=== PATIENT | female | born 1930 ===

== ENCOUNTER 2017-10-06 13:59 | Inpatient (IN) | payer OTHER ==
[2017-10-06] MEDS ORDERED: Iohexol 240 (50 ml) PO ONE (15:00)
[2017-10-06] MEDS ORDERED: Sodium Chloride 0.9% 1,000 ML IV STA (15:07)
--- NOTE | 2017-10-06 15:34 | ED PDOC ---
HPI: Abdomen Time Seen by Provider: 10/06/17 14:27 Chief Complaint (Nursing): Abdominal Pain Chief Complaint (Provider): Abdominal pain History Per: Patient History/Exam Limitations: no limitations Onset/Duration Of Symptoms: Days (10), Persistent Current Symptoms Are (Timing): Still Present Location Of Pain/Discomfort: Diffuse Additional History Per: Patient Additional Complaint(s): 87yo female, with history of hypertension, comes to ER for evaluation of abdominal pain for the past 10 days. Patient reports the pain is "on and off" but persistently. She states the pain is diffuse and worse with eating/drinking ; she reports decreased appetite secondary to pain. She reports she was evaluated at [facility] and had a CT scan, which revealed acute diverticulitis ; patient was given prescriptions for Keflex and Flagyl which she has been taking as prescribed, with no relief of symptoms. Patient denies any associated fever, chills, vomiting, diarrhea, bloody stools, or dark stools. 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 Harkins Past Medical History Reviewed: Historical Data, Nursing Documentation, Vital Signs Vital Signs: Last Vital Signs Temp 97.4 F L 10/07/17 09:00 Pulse 64 10/07/17 09:18 Resp 18 10/07/17 09:00 BP 122/66 10/07/17 09:18 Pulse Ox 98 10/07/17 09:00 - Medical History PMH: Arthritis, Asthma, HTN, Hyperlipidemia - Surgical History Surgical History: Appendectomy, Cholecystectomy Other surgeries: bilateral knee surgery - Family History Family History: States: No Known Family Hx - Home Medications Home Medications: Ambulatory Orders Medication Instructions Recorded Carvedilol [Coreg] 12.5 mg PO BID 10/06/17 Cephalexin [Keflex] 500 mg PO TID 10/06/17 Pantoprazole [Protonix EC Tab] 40 mg PO DAILY 10/06/17 metroNIDAZOLE [Flagyl] 500 mg PO TID 10/06/17 - Allergies Allergies/Adverse Reactions: Allergies Allergy/AdvReac Type Severity Reaction Status Date / Time No Known Allergies Allergy Verified 10/06/17 14:04 Review of Systems ROS Statement: Except As Marked, All Systems Reviewed And Found Negative (as per HPI) Constitutional: Negative for: Fever, Chills Cardiovascular: Negative for: Chest Pain Respiratory: Negative for: Shortness of Breath Gastrointestinal: Positive for: Abdominal Pain. Negative for: Vomiting, Diarrhea, Melena, Hematochezia Physical Exam - Reviewed Nursing Documentation Reviewed: Yes Vital Signs Reviewed: Yes - Physical Exam Appears: Positive for: Non-toxic, No Acute Distress Head Exam: Positive for: ATRAUMATIC, NORMAL INSPECTION, NORMOCEPHALIC Skin: Positive for: Normal Color Eye Exam: Positive for: Normal appearance, EOMI Neck: Positive for: Normal, Supple Cardiovascular/Chest: Positive for: Regular Rate, Rhythm Respiratory: Positive for: Normal Breath Sounds Pulses-Radial (L): 2+ Pulses-Radial (R): 2+ Gastrointestinal/Abdominal: Positive for: Normal Exam, Soft. Negative for: Tenderness, Mass, Guarding, Rebound Back: Positive for: Normal Inspection Extremity: Positive for: Normal ROM. Negative for: Pedal Edema, Deformity Neurologic/Psych: Positive for: Alert, Oriented. Negative for: Motor/Sensory Deficits - Laboratory Results Result Diagrams: 10/07/17 06:25 10/07/17 06:25 - ECG O2 Sat by Pulse Oximetry: 99 (RA) Pulse Ox Interpretation: Normal Medical Decision Making Medical Decision Making: Impression: Abdominal pain Differential: Acute diverticulitis, failed outpatient treatment, SBO Plan: -- Labs -- CT Abdomen/Pelvis w/ PO & IV Contrast -- IV Fluids Time: 1700 Patient signed out to Dr. Garnett pending CT studies. Scribe Attestation: Documented by Gala Dow, acting as a scribe for Tristan Mejia MD. Provider Scribe Attestation: All medical record entries made by the Scribe were at my direction and personally dictated by me. I have reviewed the chart and agree that the record accurately reflects my personal performance of the history, physical exam, medical decision making, and the department course for this patient. I have also personally directed, reviewed, and agree with the discharge instructions and disposition. Disposition - Clinical Impression Clinical Impression: Abdominal pain - Patient ED Disposition Is Patient to be Admitted: Transfer of Care Counseled Patient/Family Regarding: Studies Performed - Disposition Disposition: Transfer of Care Disposition Time: 17:00 Condition: FAIR Patient Signed Over To: Naeem Garnett Y Handoff Comments: pending CT
[2017-10-06 15:59] LABS: BASO % 0.4 % (0.0-2.0); EOS # 0.1 K/uL (0.0-0.7); EOS % 1.1 % (0.0-4.0); HEMOGLOBIN 12.1 g/dL (12.0-16.0); LYMPH # 1.6 K/uL (1.0-4.3); MEAN CELL VOLUME 100.4 fl (81.0-99.0); MEAN CORPUSCULAR HEMOGLOBIN 33.8 pg (27.0-31.0); MEAN CORPUSCULAR HGB CONC 33.7 g/dL (33.0-37.0); MEAN PLATELET VOLUME 7.4 fl (7.2-11.7); MONO # 0.7 K/uL (0.0-0.8); MONO % 6.1 % (0.0-10.0); NEUT # 8.3 K/uL (1.8-7.0); NEUT % 77.4 % (50.0-75.0); NRBC % 0.2 % (0.0-0.0); RBC 3.58 Mil/uL (3.80-5.20); RED CELL DISTRIBUTION WIDTH 13.4 % (11.5-14.5); WHITE BLOOD COUNT 10.7 K/uL (4.8-10.8)
[2017-10-06 16:09] LABS: ALB/GLOB RATIO 1.2 (1.0-2.1); ALBUMIN 3.8 g/dL (3.5-5.0); CALCIUM 9.7 mg/dL (8.4-10.2)
[2017-10-06] MEDS ORDERED: Iohexol 240 (50 ml) ONE ×2 (16:52→16:54)
--- NOTE | 2017-10-06 17:04 | ED PDOC ---
- Laboratory Results Result Diagrams: 10/06/17 15:54 10/06/17 15:54 - ECG O2 Sat by Pulse Oximetry: 99 (RA) Pulse Ox Interpretation: Normal Medical Decision Making Medical Decision Making: Time: 170 Patient signed out to me by Dr. Mejia pending CT studies and reevaluation. Time: 1833 Patient remains awake, alert and oriented x 3 and is stable. Patient to be signed out to Dr. Antonio pending CT results, reevaluation. Scribe Attestation: Documented by Gala Dow, acting as a scribe for Naeem Garnett MD. Provider Scribe Attestation: All medical record entries made by the Scribe were at my direction and personally dictated by me. I have reviewed the chart and agree that the record accurately reflects my personal performance of the history, physical exam, medical decision making, and the department course for this patient. I have also personally directed, reviewed, and agree with the discharge instructions and disposition. Disposition - POA Present On Arrival: None - Disposition Referrals: Phani Harkins MD [Primary Care Provider] - Disposition: Transfer of Care Disposition Time: 19:00 Condition: STABLE Forms: [employer] ([place]an) Patient Signed Over To: Jesús Antonio
--- NOTE | 2017-10-06 19:21 | ED PDOC ---
- Laboratory Results Result Diagrams: 10/07/17 06:25 10/07/17 06:25 - ECG O2 Sat by Pulse Oximetry: 99 (RA) Pulse Ox Interpretation: Normal Medical Decision Making Medical Decision Making: Time: 1714 Patient signed out to me by Dr. Garnett pending CT study. Time: 2048 CT Abdomen/Pelvis FINDINGS: LUNG BASES: Unremarkable. MEDIASTINUM: Moderate hiatal hernia. ABDOMEN: LIVER: Unremarkable. GALLBLADDER AND BILE DUCTS: Postoperative changes from cholecystectomy. No ductal dilation. PANCREAS: Unremarkable. No mass. No ductal dilation. SPLEEN: Unremarkable. No splenomegaly. ADRENALS: Unremarkable. No mass. KIDNEYS AND URETERS: 3.8 x 2.4 cm right renal cyst. No hydronephrosis. STOMACH AND BOWEL: Portions of bowel particularly small bowel loops in the lower abdomen with extensive inflammatory changes suggestive of infectious/inflammatory process. Scattered colonic diverticuli. No diverticulitis. No obstruction. PELVIS: APPENDIX: No findings to suggest acute appendicitis. BLADDER: Unremarkable. REPRODUCTIVE: Unremarkable as visualized. ABDOMEN and PELVIS: INTRAPERITONEAL SPACE: No free air. No significant fluid collection. BONES/JOINTS: Bilateral L4 spondylolysis. Degenerative changes. SOFT TISSUES: Unremarkable. VASCULATURE: Atherosclerosis. No abdominal aortic aneurysm. LYMPH NODES: Unremarkable. No enlarged lymph nodes. IMPRESSION: 1. Portions of bowel particularly small bowel loops in the lower abdomen with extensive inflammatory changes suggestive of infectious/inflammatory process. 2. Scattered colonic diverticuli. No diverticulitis. 3. Moderate hiatal hernia. 4. Postoperative changes from cholecystectomy. 5. 3.8 x 2.4 cm right renal cyst. Time: 0 On reassessment, patient reports she has persistent abdominal pain. COnsidering this is patient's 3rd visit since 09/25 (patient was seen at [facility] on 09/25, at [facility] on 09/27) and has had no improvement despite treatment of acute diverticulitis with Cipro and Flagyl. Plan for admission due to undifferentiated abdominal pain, with inflammatory changes on CT. Case discussed with Dr. Driscoll (covering for Dr. Harkins), who accepts the patient. Scribe Attestation: Documented by Gala Dow, acting as a scribe for Jesús Antonio MD. Provider Scribe Attestation: All medical record entries made by the Scribe were at my direction and personally dictated by me. I have reviewed the chart and agree that the record accurately reflects my personal performance of the history, physical exam, medical decision making, and the department course for this patient. I have also personally directed, reviewed, and agree with the discharge instructions and disposition. Disposition - Clinical Impression Clinical Impression: Abdominal pain - POA Present On Arrival: None - Disposition Disposition: Admitted as In-Patient Disposition Time: 20:00 Condition: FAIR
[2017-10-06] MEDS ORDERED: Iohexol 300 100 ML IJ ONE (19:44)
[2017-10-06] MEDS ORDERED: HYDROmorphone 0.5 mg/0.5 ml ISec IVP PRN (22:04)
--- NOTE | 2017-10-06 22:11 | CP.PCM.HP ---
History of Present Illness - History of Present Illness History of Present Illness: CC: Abd pain History via family member in Finnish HPI: This is an 87 y/o female with MHx significant for HTN and RA who presents with 2 weeks of persistent abdominal pain, without n/v/d. She was seen at [facility] in the past 2 weeks, had multiple abd CTs, was diagnosed with diverticulitis and started on Cipro/Flagyl. Symptoms have not improved, and pain is persistent. Nothing makes the pain better. Denies f/c. Denies CP/SOB. ROS: 14 systems reviewed, negative other than HPI MHx: HTN, RA SHx: b/l knees, gb, appx, and cataracts Allergies: NKDA Medications: Per med rec Family Hx: No relevant findings Social Hx: Lives with family, no tobacco, no EtOH Surrogate Dec Mkr: Christopher Dumont, toni in chart Present on Admission - Present on Admission Any Indicators Present on Admission: No Past Patient History - Infectious Disease Hx of Infectious Diseases: None - Past Social History Smoking Status: Never Smoked - CARDIAC Hx Hypertension: Yes - PULMONARY Hx Asthma: Yes - HEENT Hx Cataracts: Yes - MUSCULOSKELETAL/RHEUMATOLOGICAL Hx Arthritis: Yes - GASTROINTESTINAL Hx Gastroesophageal Reflux: Yes Other/Comment: mass in the stomach - PSYCHIATRIC Hx Substance Use: No - SURGICAL HISTORY Hx Appendectomy: Yes Hx Cholecystectomy: Yes - ANESTHESIA Hx Anesthesia: Yes Hx Anesthesia Reactions: No Hx Malignant Hyperthermia: No Meds Allergies/Adverse Reactions: Allergies Allergy/AdvReac Type Severity Reaction Status Date / Time No Known Allergies Allergy Verified 10/06/17 14:04 Physical Exam - Constitutional Appears: No Acute Distress - Head Exam Head Exam: ATRAUMATIC, NORMOCEPHALIC - Eye Exam Eye Exam: EOMI, PERRL - ENT Exam ENT Exam: Mucous Membranes Moist - Neck Exam Neck exam: Positive for: Full Rom - Respiratory Exam Respiratory Exam: Clear to Auscultation Bilateral, NORMAL BREATHING PATTERN - Cardiovascular Exam Cardiovascular Exam: REGULAR RHYTHM, +S1, +S2 - GI/Abdominal Exam GI & Abdominal Exam: Normal Bowel Sounds, Soft, Tenderness - Extremities Exam Extremities exam: Positive for: full ROM, normal inspection - Neurological Exam Neurological exam: Alert, CN II-XII Intact, Oriented x3 - Psychiatric Exam Psychiatric exam: Normal Affect, Normal Mood - Skin Skin Exam: Dry, Warm Results - Vital Signs Recent Vital Signs: Last Vital Signs Temp 98.0 F 10/06/17 14:04 Pulse 81 10/06/17 14:04 Resp 19 10/06/17 14:04 BP 94/60 L 10/06/17 14:04 Pulse Ox 99 10/06/17 22:02 - Labs Result Diagrams: 10/06/17 15:54 10/06/17 15:54 Labs: Laboratory Results - last 24 hr 10/06/17 10/06/17 15:54 15:54 WBC 10.7 RBC 3.58 L Hgb 12.1 Hct 35.9 MCV 100.4 H MCH 33.8 H MCHC 33.7 RDW 13.4 Plt Count 388 MPV 7.4 Neut % (Auto) 77.4 H Lymph % (Auto) 15.0 L [place] % (Auto) 6.1 Eos % (Auto) 1.1 Baso % (Auto) 0.4 Neut # (Auto) 8.3 H Lymph # (Auto) 1.6 [place] # (Auto) 0.7 Eos # (Auto) 0.1 Baso # (Auto) 0.0 Sodium 134 Potassium 4.8 Chloride 97 L Carbon Dioxide 24 Anion Gap 18 BUN 39 H Creatinine 1.1 Est GFR ( Amer) 57 Est GFR (Non-Af Amer) 47 Random Glucose 75 Calcium 9.7 Total Bilirubin 0.8 AST 39 H ALT 23 Alkaline Phosphatase 91 Total Protein 7.1 Albumin 3.8 Globulin 3.3 Albumin/Globulin Ratio 1.2 Lipase 57 - Imaging and Cardiology CT scan - abdomen Status: Image reviewed by me, Report reviewed by me Additional comment: IMPRESSION: 1. Portions of bowel particularly small bowel loops in the lower abdomen with extensive inflammatory changes suggestive of infectious/inflammatory process. 2. Scattered colonic diverticuli. No diverticulitis. 3. Moderate hiatal hernia. 4. Postoperative changes from cholecystectomy. 5. 3.8 x 2.4 cm right renal cyst. Assessment & Plan (1) Enteritis Assessment and Plan: 87 y/o female with persistent abd pain, initially diagnosed as diverticulitis, but now CT shows enteritis. -Clear liquids as tolerated -IVF -Pain medications per scale -Zofran for nausea IV -Resume IV cipro and flagyl -GI consult [facility] -SCDs only for GI PPx Status: Acute (2) Abdominal pain Status: Acute (3) DVT prophylaxis Status: Acute
[2017-10-06] MEDS ORDERED: Ciprofloxacin 400mg/200ml D5W 400 MG/200 ML BAG IVPB ONE (22:19)
[2017-10-06] MEDS: Ciprofloxacin 400mg/200ml D5W 400 MG/200 ML BAG IVPB SCH (22:58)
[2017-10-07] MEDS: metroNIDAZOLE 500mg/100ml NS 100 ML IVPB SCH ×3 (00:56→16:07)
[2017-10-07 07:05] LABS: HEMOGLOBIN 10.8 g/dL (12.0-16.0); MEAN CELL VOLUME 100.7 fl (81.0-99.0); MEAN CORPUSCULAR HEMOGLOBIN 34.3 pg (27.0-31.0); RBC 3.15 Mil/uL (3.80-5.20); RED CELL DISTRIBUTION WIDTH 13.4 % (11.5-14.5); WHITE BLOOD COUNT 5.8 K/uL (4.8-10.8)
[2017-10-07 07:19] LABS: BLOOD UREA NITROGEN 26 mg/dl (7-17); CALCIUM 8.9 mg/dL (8.4-10.2); GFR AFRICAN-AMERICAN > 60; GFR NON-AFRICAN AMERICAN 59
[2017-10-07] MEDS: Pantoprazole 40 mg EC Tab PO SCH (09:17)
--- NOTE | 2017-10-07 10:01 | CT ---
Date of service: 10/06/2017 PROCEDURE: CT Abdomen and Pelvis with contrast HISTORY: abdominal pain COMPARISON: None. TECHNIQUE: Contrast dose: 90 cc Omnipaque 300 Radiation dose: Total exam DLP = 445.73 mGy-cm. This CT exam was performed using one or more of the following dose reduction techniques: Automated exposure control, adjustment of the mA and/or kV according to patient size, and/or use of iterative reconstruction technique. FINDINGS: LOWER THORAX: Unremarkable. LIVER: Hepatopedal blood flow. Fatty infiltration manifest ultrasonographically as increased GALLBLADDER AND BILE DUCTS: Status post cholecystectomy. No abnormality is seen in the gallbladder fossa. PANCREAS: Unremarkable. No gross lesion or ductal dilatation. SPLEEN: Unremarkable. ADRENALS: Unremarkable. No mass. KIDNEYS AND URETERS: Unremarkable. No hydronephrosis. No solid mass. Incidental finding(s): Right renal cyst 2.7 x 3 cm. VASCULATURE: Unremarkable. No aortic aneurysm. BOWEL: Focal inflammatory changes limited to midline pelvic loops of small bowel. There is associated segmental ileus. Small bowel beyond the inflammatory/ infectious process is of normal bowel caliber. Diverticulosis without an acute inflammatory component or other associated pathologic process. Moderate-sized hiatal hernia. APPENDIX: Normal appendix. PERITONEUM: Unremarkable. No free fluid. No free air. LYMPH NODES: Unremarkable. No enlarged lymph nodes. BLADDER: Unremarkable. REPRODUCTIVE: Unremarkable. BONES: No acute fracture. OTHER FINDINGS: None. IMPRESSION: Infectious inflammatory process affecting pelvic loops of small bowel. No drainable collection. Associated mild ileus without mechanical obstruction. Additional benign and/or incidental findings described above. Concordant results (preliminary interpretation) provided by [employer]. Procedure Completed: 19:57 Preliminary ([employer]) Report: Dictated and Authenticated: 20:48 Final Interpretation: 09:59. October 07, 2017.
--- NOTE | 2017-10-07 12:39 | CARD ---
APPROVED REPORT Date of service: 10/06/2017 EKG Measurement Heart [id number] <Conclusion> Sinus rhythm with 1st degree AV block Right bundle branch block Abnormal ECG
--- NOTE | 2017-10-07 13:18 | CP.PCM.PN ---
Subjective - Date & Time of Evaluation Date of Evaluation: 10/07/17 Time of Evaluation: 10:50 - Subjective Subjective: No fever abd pain better no N/V denies diarrhea nor constipation no N/V tolerating Clear liquid diet denies CP no SOB Objective - Vital Signs/Intake and Output Vital Signs (last 24 hours): Temp Pulse Resp BP Pulse Ox 97.4 F L 64 18 122/66 98 10/07/17 09:00 10/07/17 09:18 10/07/17 09:00 10/07/17 09:18 10/07/17 09:00 - Medications Medications: Current Medications Acetaminophen (Tylenol 325mg Tab) 650 mg PO Q6 PRN PRN Reason: Fever >100.4 F Al Hydrox/Mg Hydrox/Simethicone (Maalox Plus 30 Ml) 30 ml PO Q6 PRN PRN Reason: Indigestion / Heartburn Carvedilol (Coreg) 12.5 mg PO DAILY [facility] Last Admin: 10/07/17 09:18 Dose: 12.5 mg Hydromorphone HCl (Dilaudid) 0.5 mg IVP Q4H PRN PRN Reason: Pain, Mild (1-3) Hydromorphone HCl (Dilaudid) 1 mg IVP Q6 PRN PRN Reason: Pain, moderate (4-7) Last Admin: 10/06/17 22:58 Dose: 1 mg Ciprofloxacin (Cipro 400mg/200ml Dsw) 400 mg in 200 mls @ 200 mls/hr IVPB Q12 DEEPA PRN Reason: Protocol Last Admin: 10/06/17 22:58 Dose: 200 mls/hr Metronidazole (Flagyl 500mg/100ml Ns) 100 mls @ 100 mls/hr IVPB Q8 DEEPA PRN Reason: Protocol Last Admin: 10/07/17 00:56 Dose: 100 mls/hr Ondansetron HCl (Zofran Inj) 4 mg IVP Q6 PRN PRN Reason: Nausea/Vomiting Last Admin: 10/06/17 23:37 Dose: 4 mg Pantoprazole Sodium (Protonix Ec Tab) 40 mg PO DAILY [facility] Last Admin: 10/07/17 09:17 Dose: 40 mg - Labs Labs: 10/07/17 06:25 10/07/17 06:25 - Constitutional Appears: No Acute Distress - Head Exam Head Exam: NORMAL INSPECTION, NORMOCEPHALIC - Eye Exam Eye Exam: EOMI, Normal appearance Pupil Exam: NORMAL ACCOMODATION - ENT Exam ENT Exam: Mucous Membranes Moist, Normal External Ear Exam - Neck Exam Neck Exam: Full ROM. absent: Meningismus - Respiratory Exam Respiratory Exam: NORMAL BREATHING PATTERN. absent: Respiratory Distress - Cardiovascular Exam Cardiovascular Exam: REGULAR RHYTHM, +S1, +S2 - GI/Abdominal Exam GI & Abdominal Exam: Soft, Tenderness (mild tenderness), Normal Bowel Sounds - Extremities Exam Extremities Exam: Full ROM, Normal Capillary Refill. absent: Calf Tenderness - Back Exam Back Exam: Full ROM. absent: CVA tenderness (L), CVA tenderness (R) - Neurological Exam Neurological Exam: Alert, Awake, CN II-XII Intact, Oriented x3 Neuro motor strength exam: Left Upper Extremity: 5, Right Upper Extremity: 5, Left Lower Extremity: 5, Right Lower Extremity: 5 - Psychiatric Exam Psychiatric exam: Normal Affect, Normal Mood - Skin Skin Exam: Dry, Normal Color, Warm Assessment and Plan - Assessment and Plan (Free Text) Assessment: 87 y/o female with MHx significant for HTN and RA who presents with 2 weeks of persistent abdominal pain, without n/v/d. She was seen at [facility] in the past 2 weeks, had multiple abd CTs, was diagnosed with diverticulitis and started on Cipro/Flagyl. Symptoms have not improved, and pain is persistent. Nothing makes the pain better. Denies f/c. Denies CP/SOB. CT of the abd : Infectious inflammatory process affecting pelvic loops of small bowel. No drainable collection. Associated mild ileus without mechanical obstruction. (1) Enteritis with mild ileus -IVF -Pain medications per scale - tolerating Liquid diet -Zofran for nausea IV -cont IV cipro and flagyl -GI consulted [facility] -SCDs only for GI PPx 2. HTN cont Coreg (3) DVT prophylaxis Status: Acute Lovenox
[2017-10-07] MEDS: Ciprofloxacin 400mg/200ml D5W 400 MG/200 ML BAG IVPB SCH ×2 (16:09→20:46)
[2017-10-07] MEDS: Alum-Mag Hydrox-Simethicone Susp (30 mL) PO PRN (20:49)
[2017-10-07] MEDS: Sucralfate 1 gm/10 ml Oral Susp UD PO SCH (20:51)
[2017-10-08] MEDS: metroNIDAZOLE 500mg/100ml NS 100 ML IVPB SCH ×3 (01:22→16:18)
[2017-10-08 06:28] LABS: BASO % 1.1 % (0.0-2.0); EOS # 0.1 K/uL (0.0-0.7); EOS % 1.9 % (0.0-4.0); HEMOGLOBIN 11.3 g/dL (12.0-16.0); LYMPH # 1.2 K/uL (1.0-4.3); LYMPH % 24.9 % (20.0-40.0); MEAN CELL VOLUME 99.6 fl (81.0-99.0); MEAN CORPUSCULAR HEMOGLOBIN 34.1 pg (27.0-31.0); MEAN CORPUSCULAR HGB CONC 34.2 g/dL (33.0-37.0); MEAN PLATELET VOLUME 6.8 fl (7.2-11.7); MONO # 0.6 K/uL (0.0-0.8); MONO % 12.5 % (0.0-10.0); NEUT # 2.8 K/uL (1.8-7.0); NEUT % 59.6 % (50.0-75.0); NRBC % 0.1 % (0.0-0.0); RBC 3.32 Mil/uL (3.80-5.20); RED CELL DISTRIBUTION WIDTH 13.2 % (11.5-14.5); WHITE BLOOD COUNT 4.7 K/uL (4.8-10.8)
[2017-10-08] MEDS: Enoxaparin 40 mg Syringe SC SCH (08:52)
[2017-10-08] MEDS: Ciprofloxacin 400mg/200ml D5W 400 MG/200 ML BAG IVPB SCH ×2 (08:52→20:00)
[2017-10-08] MEDS: Sucralfate 1 gm/10 ml Oral Susp UD PO SCH ×2 (08:52→16:19)
[2017-10-08] MEDS: Pantoprazole 40 mg EC Tab PO SCH (08:53)
--- NOTE | 2017-10-08 16:36 | CP.PCM.PN ---
Subjective - Date & Time of Evaluation Date of Evaluation: 10/08/17 Time of Evaluation: 16:00 - Subjective Subjective: Patient seen and examined. Claimed she is feeling better but still have abdominal pain whenever some thing by mouth Objective - Vital Signs/Intake and Output Vital Signs (last 24 hours): Temp Pulse Resp BP Pulse Ox 98.3 F 69 20 125/78 95 10/08/17 16:05 10/08/17 16:05 10/08/17 16:05 10/08/17 16:05 10/08/17 16:05 - Medications Medications: Current Medications Acetaminophen (Tylenol 325mg Tab) 650 mg PO Q6 PRN PRN Reason: Fever >100.4 F Al Hydrox/Mg Hydrox/Simethicone (Maalox Plus 30 Ml) 30 ml PO Q6 PRN PRN Reason: Indigestion / Heartburn Last Admin: 10/07/17 20:49 Dose: 30 ml Carvedilol (Coreg) 12.5 mg PO DAILY [facility] Last Admin: 10/08/17 08:52 Dose: 12.5 mg Enoxaparin Sodium (Lovenox) 40 mg SC DAILY [facility] PRN Reason: Protocol Last Admin: 10/08/17 08:52 Dose: 40 mg Hydromorphone HCl (Dilaudid) 0.5 mg IVP Q4H PRN PRN Reason: Pain, Mild (1-3) Hydromorphone HCl (Dilaudid) 1 mg IVP Q6 PRN PRN Reason: Pain, moderate (4-7) Last Admin: 10/06/17 22:58 Dose: 1 mg Ciprofloxacin (Cipro 400mg/200ml Dsw) 400 mg in 200 mls @ 200 mls/hr IVPB Q12 DEEPA PRN Reason: Protocol Last Admin: 10/08/17 08:52 Dose: 200 mls/hr Metronidazole (Flagyl 500mg/100ml Ns) 100 mls @ 100 mls/hr IVPB Q8 DEEPA PRN Reason: Protocol Last Admin: 10/08/17 16:18 Dose: 100 mls/hr Ondansetron HCl (Zofran Inj) 4 mg IVP Q6 PRN PRN Reason: Nausea/Vomiting Last Admin: 10/06/17 23:37 Dose: 4 mg Pantoprazole Sodium (Protonix Ec Tab) 40 mg PO DAILY [facility] Last Admin: 10/08/17 08:53 Dose: 40 mg Sucralfate (Carafate Oral Susp) 1 gm PO BID DEEPA Last Admin: 10/08/17 16:19 Dose: 1 gm - Labs Labs: 10/08/17 06:00 10/07/17 06:25 - Constitutional Appears: No Acute Distress - Head Exam Head Exam: ATRAUMATIC - Eye Exam Eye Exam: absent: Scleral icterus - ENT Exam ENT Exam: Mucous Membranes Moist - Neck Exam Neck Exam: absent: Meningismus - Respiratory Exam Respiratory Exam: absent: Rales, Rhonchi, Wheezes, Respiratory Distress - Cardiovascular Exam Cardiovascular Exam: REGULAR RHYTHM, +S1, +S2 - GI/Abdominal Exam GI & Abdominal Exam: Soft. absent: Tenderness - Rectal Exam Rectal Exam: Deferred - Neurological Exam Neurological Exam: Alert, Oriented x3 - Psychiatric Exam Psychiatric exam: Normal Affect - Skin Skin Exam: Dry, Intact Assessment and Plan - Assessment and Plan (Free Text) Assessment: 87 yo female with history of HTN and RA admitted on 10/06/17 because of persistent abdominal pain. Diagnosed with Diverticulitis at [facility] and was sent home with oral Flagyl and Cipro. Patient ended up not taking the medications because they bothered her stomach so her condition did not improved. 1. Enteritis with mild ileus tolerated clear liquid diet and has been pain free since this morning will advance diet to full liquid then soft, regular diet continue IV Flagyl and Cipro GI consult with Dr Smith (to see patient tomorrow) 2. HTN BP stable continue Coreg 3. DVT prophylaxis on Lovenox
[2017-10-08] MEDS: Alum-Mag Hydrox-Simethicone Susp (30 mL) PO PRN (19:55)
[2017-10-09 00:14] VITALS: O2SAT 97
[2017-10-09] MEDS: metroNIDAZOLE 500mg/100ml NS 100 ML IVPB SCH ×2 (00:24→08:40)
[2017-10-09 08:42] VITALS: BP 150/69; PULSE 69; RESP 20; TEMP 98.3
[2017-10-09] MEDS: Enoxaparin 40 mg Syringe SC SCH (08:56)
[2017-10-09] MEDS: Sucralfate 1 gm/10 ml Oral Susp UD PO SCH (08:56)
[2017-10-09] MEDS: Pantoprazole 40 mg EC Tab PO SCH (08:56)
[2017-10-09] MEDS: Ciprofloxacin 400mg/200ml D5W 400 MG/200 ML BAG IVPB SCH (10:10)
[2017-10-09 12:09] LABS: URINE BILIRUBIN NEGATIVE (NEGATIVE); URINE BLOOD NEGATIVE (NEGATIVE); URINE CLARITY CLEAR (Clear); URINE COLOR YELLOW (YELLOW); URINE GLUCOSE (UA) NEG (Normal); URINE LEUKOCYTE ESTERASE TRACE Leu/uL (Negative); URINE PROTEIN NEGATIVE (NEGATIVE); URINE UROBILINOGEN 0.2-1.0 mg/dL (0.2-1.0)
--- NOTE | 2017-10-09 16:22 | CP.PCM.DIS ---
Provider - Provider Date of Admission: 10/06/17 21:41 Attending physician: Bradley Driscoll MD Primary care physician: Phani Harkins MD Consults: Dr Smith Time Spent in preparation of Discharge (in minutes): 25 Diagnosis - Discharge Diagnosis (1) Enteritis Status: Acute Comment: patient discharged in stable and improved condition. continue PO Flagyl and Cipro. To see Dr Smith as outpatient for follow up (2) HTN (hypertension) Status: Chronic Comment: BP stable. continue [facility] Hospital Course - Lab Results Lab Results: Most Recent Lab Values WBC 4.7 K/uL (4.8-10.8) L 10/08/17 06:00 RBC 3.32 Mil/uL (3.80-5.20) L 10/08/17 06:00 Hgb 11.3 g/dL (12.0-16.0) L 10/08/17 06:00 Hct 33.1 % (34.0-47.0) L 10/08/17 06:00 MCV 99.6 fl (81.0-99.0) H 10/08/17 06:00 MCH 34.1 pg (27.0-31.0) H 10/08/17 06:00 MCHC 34.2 g/dL (33.0-37.0) 10/08/17 06:00 RDW 13.2 % (11.5-14.5) 10/08/17 06:00 Plt Count 389 K/uL (130-400) 10/08/17 06:00 MPV 6.8 fl (7.2-11.7) L 10/08/17 06:00 Neut % (Auto) 59.6 % (50.0-75.0) 10/08/17 06:00 Lymph % (Auto) 24.9 % (20.0-40.0) 10/08/17 06:00 [place] % (Auto) 12.5 % (0.0-10.0) H 10/08/17 06:00 Eos % (Auto) 1.9 % (0.0-4.0) 10/08/17 06:00 Baso % (Auto) 1.1 % (0.0-2.0) 10/08/17 06:00 Neut # (Auto) 2.8 K/uL (1.8-7.0) 10/08/17 06:00 Lymph # (Auto) 1.2 K/uL (1.0-4.3) 10/08/17 06:00 [place] # (Auto) 0.6 K/uL (0.0-0.8) 10/08/17 06:00 Eos # (Auto) 0.1 K/uL (0.0-0.7) 10/08/17 06:00 Baso # (Auto) 0.0 K/uL (0.0-0.2) 10/08/17 06:00 Sodium 136 mmol/l (132-148) 10/07/17 06:25 Potassium 4.5 MMOL/L (3.6-5.0) 10/07/17 06:25 Chloride 102 mmol/L (98-107) 10/07/17 06:25 Carbon Dioxide 21 mmol/L (22-30) L 10/07/17 06:25 Anion Gap 18 (10-20) 10/07/17 06:25 BUN 26 mg/dl (7-17) H 10/07/17 06:25 Creatinine 0.9 mg/dl (0.7-1.2) 10/07/17 06:25 Est GFR ( Amer) > 60 10/07/17 06:25 Est GFR (Non-Af Amer) 59 10/07/17 06:25 Random Glucose 91 mg/dL (65-105) 10/07/17 06:25 Calcium 8.9 mg/dL (8.4-10.2) 10/07/17 06:25 Total Bilirubin 0.8 mg/dl (0.2-1.3) 10/06/17 15:54 AST 39 U/L (14-36) H 10/06/17 15:54 ALT 23 U/L (9-52) 10/06/17 15:54 Alkaline Phosphatase 91 U/L (38-126) 10/06/17 15:54 Total Protein 7.1 G/DL (6.3-8.2) 10/06/17 15:54 Albumin 3.8 g/dL (3.5-5.0) 10/06/17 15:54 Globulin 3.3 gm/dL (2.2-3.9) 10/06/17 15:54 Albumin/Globulin Ratio 1.2 (1.0-2.1) 10/06/17 15:54 Lipase 57 U/L (23-300) 10/06/17 15:54 Urine Color Yellow (YELLOW) 10/06/17 11:40 Urine Clarity Clear (Clear) 10/06/17 11:40 Urine pH 6.0 (5.0-8.0) 10/06/17 11:40 Ur Specific [place] 1.005 (1.003-1.030) 10/06/17 11:40 Urine Protein Negative mg/dL (NEGATIVE) 10/06/17 11:40 Urine Glucose (UA) Neg mg/dL (Normal) 10/06/17 11:40 Urine Ketones Negative mg/dL (NEGATIVE) 10/06/17 11:40 Urine Blood Negative (NEGATIVE) 10/06/17 11:40 Urine Nitrate Negative (NEGATIVE) 10/06/17 11:40 Urine Bilirubin Negative (NEGATIVE) 10/06/17 11:40 Urine Urobilinogen 0.2-1.0 mg/dL (0.2-1.0) 10/06/17 11:40 Ur Leukocyte Esterase Trace Rahul/uL (Negative) 10/06/17 11:40 Urine Microscopic WBC 1 /hpf (0-5) 10/06/17 11:40 C. difficile Ag & Toxin Negative (NEGATIVE) 10/09/17 11:08 - Hospital Course Hospital Course: 87 yo female with history of HTN and RA admitted on 10/06/17 because of persistent abdominal pain. Diagnosed with Diverticulitis at [facility] and was sent home with oral Flagyl and Cipro. Patient did not take the medications because they tasted bitter and so her condition did not improve. Patient was diagnosed with Enteritis and put back on IV Cipro and Flagyl. Patient's condition gradually improved and abdominal pain was relieved. GI consult with Dr Smith was called and he agreed with the management. He advised patient to be followed by him in his office to work up for possible late onset Crohn's Disease. Patient was discharged in stable condition with PO Flagyl and Cipro plus Bacid. Discharge Exam - Head Exam Head Exam: ATRAUMATIC - Eye Exam Eye Exam: absent: Scleral icterus - ENT Exam ENT Exam: Mucous Membranes Moist - Respiratory Exam Respiratory Exam: absent: Rales, Rhonchi, Wheezes, Respiratory Distress - Cardiovascular Exam Cardiovascular Exam: REGULAR RHYTHM, +S1, +S2 - GI/Abdominal Exam GI & Abdominal Exam: Soft. absent: Tenderness - Rectal Exam Rectal Exam: Deferred - Neurological Exam Neurological exam: Alert, Oriented x3 - Psychiatric Exam Psychiatric exam: Normal Affect - Skin Skin Exam: Dry, Intact Discharge Plan - Discharge Medications Prescriptions: Ciprofloxacin [Cipro] 500 mg PO BID #14 tab Lactobacillus Acidophilus [Bacid Acidophilus] 1 cap PO BID #14 cap metroNIDAZOLE [Flagyl] 500 mg PO TID #21 tab - Follow Up Plan Condition: FAIR Disposition: HOME/ ROUTINE Instructions: Diarrhea in Adolescents and Adults, Acute Abdomen (Belly Pain), Adult (DC) Additional Instructions: hacer fabio con hodge primario dentro de 1 semana Referrals: Phani Harkins MD [Primary Care Provider] - Enoch Smith MD [Staff Provider] -
[2017-10-09] MEDS ORDERED: Lactobacillus Acidophilus 500 MU Cap PO SCH (17:00)
--- NOTE | 2017-10-10 08:58 | CON ---
DATE: 10/09/2017 HISTORY OF PRESENT ILLNESS: Ms. Dumont is an 87-year-old female, who was admitted with several days history of lower abdominal pain with loose stool. CAT scan of the abdomen done in the emergency room showed some inflammatory infectious changes of small bowel loop in the pelvic area. The patient was started on antibiotic and referred for consultation. The patient has improved on IV antibiotic. Denies abdominal pain, present fever or chills and has been tolerating clear liquid diet. PAST MEDICAL HISTORY: Positive for hypertension, hypercholesterolemia, and rheumatoid arthritis. 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 The patient was evaluated at that point with a PET scan. The patient did not follow up since 2012 and apparently did because of insurance reason. LABORATORY DATA: Labs are reviewed and are remarkable. SOCIAL HISTORY: Does not drink or smoke. FAMILY HISTORY: Noncontributory. REVIEW OF SYSTEMS: All systems reviewed and negative except for that were negative history of present illness. PHYSICAL EXAMINATION: GENERAL: She is awake and alert in no apparent distress. VITAL SIGNS: Stable. HEENT: She is normocephalic atraumatic. Extraocular muscles intact. Pupils are equal and reactive to light and accommodation. No JVD. No ecchymosis. HEART: S1 and S2, no murmurs or gallop. LUNGS: Clear. ABDOMEN: Soft. There is no guarding or rebound. Bowel sounds are positive. EXTREMITIES: No edema, cyanosis, or clubbing. NEUROLOGIC: Cranial nerves II through XII very intact. RECTAL: Deferred. IMPRESSION: Enteritis, agree with present management. Case was discussed with house attending, . The differential will include an infectious colitis versus inflammatory bowel disease, Crohn's disease, which is less likely will be malignant involvement of the small bowel in view of history of gastric cancer, again unlikely in view of no other evidence of metastatic disease on CAT scan, we would suggest to advance diet. The patient would be evaluated with C-Reactive protein, inflammatory bowel disease antibody panel, small bowel series and to follow capsule endoscopy to establish the etiology of the enteritis. We would reevaluate in the office in one to two weeks. Thank you for allowing me to participate in the care of your patient. We will follow as needed. Enoch Smith MD
== END 2017-10-09 15:55 | disposition home or self-care (01) | DRG 392 ==
LOC: H.ER 13:59 → SUPCPDRO 13:59 → H.ERHOLD 21:41 → H.MEDSURG1 10-07 00:16
PROVIDERS: ADMIT Internal Medicine; ATTEND Internal Medicine
DX: K52.9 Noninfective gastroenteritis and colitis, unspecified (principal); K56.7 Ileus, unspecified; M06.9 Rheumatoid arthritis, unspecified; I10 Essential (primary) hypertension; M19.90 Unspecified osteoarthritis, unspecified site; J45.909 Unspecified asthma, uncomplicated; E78.5 Hyperlipidemia, unspecified; E78.00 Pure hypercholesterolemia, unspecified; Z85.028 Personal history of other malignant neoplasm of stomach

== ENCOUNTER 2017-11-13 10:29 | Day surgery (SDC) | payer OTHER ==
[2017-11-13] MEDS ORDERED: Lactated Ringer's 500 ML IV ONE (11:08)
[2017-11-13] MEDS ORDERED: Propofol 10 mg/ml Inj (20 ML) ONE (12:26)
[2017-11-13 13:27] VITALS: TEMP 97.5
[2017-11-13 13:37] VITALS: BP 114/56; PULSE 83; RESP 18; O2SAT 99
== END 2017-11-13 14:01 | disposition home or self-care (01) ==
LOC: H.ENDO 10:29
PROVIDERS: ATTEND Internal Medicine Gastroenterology
DX: K22.8 Other specified diseases of esophagus (principal); K29.50 Unspecified chronic gastritis without bleeding; K44.9 Diaphragmatic hernia without obstruction or gangrene; K31.89 Other diseases of stomach and duodenum; R10.13 Epigastric pain; R11.2 Nausea with vomiting, unspecified; I10 Essential (primary) hypertension; Z86.008 Personal history of in-situ neoplasm of other site
CPT/HCPCS: 43239; 88305; J2001; J2704; J7120